=== PATIENT | female | born 1945 | race Caucasian/White ===

== ENCOUNTER → 2017-02-06 | Outpatient (CLI) | payer OTHER ==
[~2017-02-06] MED LIST: ASPIRIN81 M1 PO; Amaryl2 MG PO; CLARITIN10 MG PO; DAYPRO600 M1 PO; DIABETA5 MG; HYZAAR 25 MG-101 TA1 PO; JANUVIA100 MG PO; PRILOSEC40 MG PO; PROTONIX20 MG PO; SYNTHROID0.1 MG PO
== END | disposition home or self-care (01) ==
LOC: MAMMO 13:01
DX: Z12.31 Encounter for screening mammogram for malignant neoplasm of breast (principal)

== ENCOUNTER → 2018-04-26 | Day surgery (SDC) | payer OTHER ==
[~2018-04-26] VITALS: Ht 157.4 cm; Wt 84.4 kg
--- NOTE | ~2018-04-26 | O ---
[place], [place] OPERATIVE NOTE NAME: BERNIE RAMOS UNIT #: [id number] ROOM: DOCTOR: HAKEEM HOLBROOK MD BIRTHDATE: [birth year] DOS: 04/26/2018 HISTORY OF PRESENT ILLNESS: A 72-year-old patient, who presented with chief complaint of Cologuard positivity, colonic screening, dyspepsia. Undergoing investigation. ALLERGIES: PENICILLIN. FAMILY HISTORY: Noncontributory. PAST SURGICAL HISTORY: Hysterectomy and cholecystectomy. PAST MEDICAL HISTORY: Hypertension, diabetes, and gastritis. SOCIAL HISTORY: Nonsmoker, nonalcohol consumer. PROCEDURE: Today's procedure part of investigation is colonoscopy plus gastroscopy and biopsy. PREMEDICATION: Propofol. SCOPE: Olympus forward-viewing gastroscope Q10 video. REPORT: After putting the patient in left lateral position and application of lubricant to the scope, the scope was introduced; thereafter, under direct visualization, advanced through the length of esophagus without difficulty. Esophagus, cervical, thoracic distally carefully examined. Gastric pouch was entered. Mild gastritis seen. Antral biopsy obtained for H. pylori. Duodenal bulb, second and third part within normal limits. The patient extubated, tolerated the procedure well. IMPRESSION: Gastritis, status post biopsy. Continuation of Protonix 20 mg 1 every day, would suffice management. The gastritis is most likely secondary to aspirin. PLAN AND DISCUSSION: I am going to proceed with colonoscopy. GASTROENDOSCOPIC REPORT INDICATION: The patient is a 72-year-old, who is ____ presented with a Cologuard positivity, undergoing colonic screening. PROCEDURE: Today's procedure part of investigation is colonoscopy and multiple polypectomies. PREMEDICATION: Propofol. [place], [place] OPERATIVE NOTE NAME: BERNIE RAMOS UNIT #: [id number] ROOM: DOCTOR: HAKEEM HOLBROOK MD BIRTHDATE: [birth year] SCOPE: Olympus forward-viewing colonoscope 10L video. REPORT: After putting the patient in left lateral position and application of lubricant to rectal pouch and digital examination, scope was introduced through and advanced to a very tortuous corkscrew pattern sigmoid colon, which is infested with numerous diverticula. This has happened because of the recurrent inflammation around the area and fibrosis of the sigmoid colon. With great difficulty this over came in; however, scope was negotiated to base of cecum. Two polypoid lesions from hepatic flexure and ____ piecemeal polypectomy and 2 polypoid lesions in splenic flexure with a snare polypectomies were removed, samples recovered. The patient extubated, tolerated the procedure well. IMPRESSION: Colonic polyps x 2 at hepatic flexure, status post piecemeal polypectomy, sessile in character, colonic polyp x 2, snare polypectomy at the splenic flexure. Severe diverticulosis, particularly the rectosigmoid anatomy with extreme tortuosity and stricture. PLAN AND DISCUSSION: Awaiting polyp pathology results and clinical ____. Followup routinely with you in office, with us p.r.n. HAKEEM HOLBROOK MD CM:OPRECORD:OPERATIVE NOTE [id number] HAKEEM HOLBROOK MD 04/26/18 1554 interface
[2018-04-26 12:32] VITALS: BP 132/66
[2018-04-26 14:40] VITALS: BP 106/41
[2018-04-26 14:55] VITALS: BP 110/44
[2018-04-26 15:10] VITALS: BP 119/65
== END | disposition home or self-care (01) ==
LOC: SDC 04-23 11:00
DX: D12.3 Benign neoplasm of transverse colon (principal); K56.2 Volvulus; K29.50 Unspecified chronic gastritis without bleeding; K57.30 Diverticulosis of large intestine without perforation or abscess without bleeding; I10 Essential (primary) hypertension; E11.9 Type 2 diabetes mellitus without complications; K21.9 Gastro-esophageal reflux disease without esophagitis; J45.909 Unspecified asthma, uncomplicated; Z88.1 Allergy status to other antibiotic agents; Z88.0 Allergy status to penicillin; Z88.2 Allergy status to sulfonamides; Z88.8 Allergy status to other drugs, medicaments and biological substances; Z90.710 Acquired absence of both cervix and uterus; Z90.49 Acquired absence of other specified parts of digestive tract; Z79.899 Other long term (current) drug therapy

== ENCOUNTER → 2020-03-08 | Outpatient (CLI) | payer OTHER ==
[~2020-03-08] MED LIST changes: +CIPRO500 MG PO; +FLAGYL500 MG PO; +ZOFRAN4 MG PO
== END | disposition home or self-care (01) ==
LOC: CT 10:00
DX: R91.8 Other nonspecific abnormal finding of lung field (principal); I25.10 Atherosclerotic heart disease of native coronary artery without angina pectoris

== ENCOUNTER → 2021-02-25 | Outpatient (CLI) | payer OTHER | END | disposition home or self-care (01) | LOC: CT 11:00 | PROVIDERS: ATTEND Internal Medicine Critical Care Medicine | DX: R91.8 Other nonspecific abnormal finding of lung field (principal); I25.10 Atherosclerotic heart disease of native coronary artery without angina pectoris; D35.01 Benign neoplasm of right adrenal gland; J45.50 Severe persistent asthma, uncomplicated; J30.89 Other allergic rhinitis; J44.9 Chronic obstructive pulmonary disease, unspecified; Z87.891 Personal history of nicotine dependence; Z68.34 Body mass index [BMI] 34.0-34.9, adult; Z95.828 Presence of other vascular implants and grafts ==

== ENCOUNTER → 2021-03-30 | Outpatient (CLI) | payer OTHER, SELFPAY | END | disposition home or self-care (01) | LOC: CARD 09:22 | PROVIDERS: ATTEND Internal Medicine Cardiovascular Disease | DX: R00.2 Palpitations (principal) ==

== ENCOUNTER 2022-04-19 11:38 | Emergency (ER) | payer OTHER ==
[2022-04-19] MEDS ORDERED: KENALOG 0.025%15 GM T (14:04)
== END 2022-04-19 14:30 | disposition home or self-care (01) ==
LOC: ED 11:38
DX: S60.561A Insect bite (nonvenomous) of right hand, initial encounter (principal); S00.86XA Insect bite (nonvenomous) of other part of head, initial encounter; Z79.82 Long term (current) use of aspirin; Z79.899 Other long term (current) drug therapy; Z88.0 Allergy status to penicillin; Z88.2 Allergy status to sulfonamides; Z88.1 Allergy status to other antibiotic agents; W57.XXXA Bitten or stung by nonvenomous insect and other nonvenomous arthropods, initial encounter; Y93.89 Activity, other specified; Y92.89 Other specified places as the place of occurrence of the external cause; Y99.9 Unspecified external cause status

== ENCOUNTER → 2022-12-05 | Outpatient (CLI) | payer OTHER ==
[~2022-12-05] MED LIST changes: +BRILINTA60 MG PO; +CETIRIZINE10 MG PO; +FLONASE ALLERG9.9 ML NAS; +KENALOG 0.025%15 GM T; +PRAVASTATIN SOD40 MG PO; +SYMB80 INH; -SYNTHROID0.1 MG PO; +Synthroid,Lev100 MCG PO
== END | disposition home or self-care (01) ==
LOC: CARD
PROVIDERS: ATTEND Internal Medicine Cardiovascular Disease
DX: I20.9 Angina pectoris, unspecified (principal)

== ENCOUNTER 2022-12-25 11:38 | Emergency (ER) | payer OTHER ==
[~2022-12-25] VITALS: Wt 79.4 kg
[2022-12-25 12:29] LABS: BASO % 0.2 % (0.0-1.0); EOS # 0.2 10*3/uL (0.0-0.4); EOS % 1.4 % (1.0-4.0); HEMATOCRIT 39.8 % (37.0-47.0); LYMPH # 1.2 10*3/uL (1.3-4.4); MEAN CELL VOLUME 87.5 fl (81.0-99.0); MEAN CORPUSCULAR HGB 29.2 pg (27.0-31.0); MEAN CORPUSCULAR HGB CONC 33.4 g/dl (33.0-37.0); MONO # 0.7 10*3/uL (0.1-1.0); MONO % 5.1 % (3.0-9.0); NEUT # 10.8 10*3/uL (2.3-7.9); NEUT % 83.9 % (47.0-73.0); PLATELET COUNT AUTOMATED 156 10*3/uL (130-400); RED BLOOD COUNT 4.55 10*6/uL (4.10-5.10); RED CELL DISTRI WIDTH 13.6 % (0-14.5); WHITE BLOOD COUNT 12.9 10*3/uL (4.8-10.8)
[2022-12-25 12:44] LABS: ALKALINE PHOSPHATASE 52 U/L (46-116); BUN 11 mg/dl (9-23); CHLORIDE 103 mmol/L (98-107); POTASSIUM 3.8 mmol/L (3.4-5.1); SGPT/ALT 27 U/L (10-49); TOTAL PROTEIN 6.3 gm/dL (6.0-8.0)
[2022-12-25] MEDS ORDERED: VIBRAMYCIN100 MG PO (14:17)
== END 2022-12-25 14:26 | disposition home or self-care (01) ==
LOC: ED 11:38
PROVIDERS: Physician Assistant
DX: J32.9 Chronic sinusitis, unspecified (principal); J44.9 Chronic obstructive pulmonary disease, unspecified; I10 Essential (primary) hypertension; E11.9 Type 2 diabetes mellitus without complications; K21.9 Gastro-esophageal reflux disease without esophagitis; E11.40 Type 2 diabetes mellitus with diabetic neuropathy, unspecified; Z88.0 Allergy status to penicillin; Z88.2 Allergy status to sulfonamides; Z88.8 Allergy status to other drugs, medicaments and biological substances

== ENCOUNTER → 2024-04-29 | Outpatient (CLI) | payer OTHER ==
[~2024-04-29] MED LIST changes: +Glimepiride1 MG PO; +Regadenoson 0.4 MG/5 ML SYR IV ONE; +VENTOLIN 02.5 MG/3 M INH; +VIBRAMYCIN100 MG PO; +[UNRECOGNIZED DRUG - OTHER] PO
== END | disposition home or self-care (01) ==
LOC: CARD 04-22 07:30
PROVIDERS: ATTEND Internal Medicine Cardiovascular Disease
DX: I25.10 Atherosclerotic heart disease of native coronary artery without angina pectoris (principal)